=== PATIENT | female | born 2000 | race Caucasian/White ===

== ENCOUNTER 2020-10-09 05:53 | Inpatient (IN) | payer MEDICAID, OTHER ==
[2020-10-09] MEDS ORDERED: Sodium Chloride 0.9% 10 ML Syringe FLUSH PRN (07:07)
[2020-10-09] MEDS ORDERED: Nalbuphine 10 MG/1 ML Vial IVPUSH PRN (07:07)
[2020-10-09] MEDS ORDERED: Misoprostol 25 MCG (1/4 of 100 MCG) Tab VAG PRN (07:07)
[2020-10-09] MEDS ORDERED: Ondansetron 4 MG/2 ML SDV IVPUSH PRN (07:07)
--- NOTE | 2020-10-09 07:13 | PCM.LDHP ---
L&D History of Present Illness - General Date of Service: 10/09/20 Admit Problem/Dx: Patient Status Order with Admit Dx/Problem 10/09/20 07:08 Patient Status [ADT] Routine Admission Diagnosis/Problem Admission Diagnosis/Problem Normal Source of Information: Patient History Limitations: Reports: No Limitations - History of Present Illness Introduction:: Patient is a 20 y/o at 39 6/7 wks who presents for elective IOL. Doing well today. 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 : 2 Para: 0 LMP (Approximate): Psychiatric History: Reports: Anxiety, Depression - Past Surgical History HEENT Surgical History: Reports: Eye Surgery Female Surgical History: Reports: D&C Social & Family History - Tobacco Use Tobacco Use Status *Q: Never Tobacco User - Alcohol Use Alcohol Use History: No - Recreational Drug Use Recreational Drug Use: No H&P Review of Systems - Review of Systems: Review Of Systems: See Below General: Reports: No Symptoms Pulmonary: Reports: No Symptoms Cardiovascular: Reports: No Symptoms Gastrointestinal: Reports: No Symptoms Genitourinary: Reports: No Symptoms Musculoskeletal: Reports: No Symptoms Psychiatric: Reports: No Symptoms Neurological: Reports: No Symptoms L&D Exam - Exam Exam: See Below - OB Specific Contraction Intensity: Irritability Movement: Active Heart Tones: Present Heart Tones per Min: 145 Heart Rate (FHR) Variability: Moderate (6-25 bmp) Presentation: Vertex - Wade Score Wade Score Cervix Position: Midposition Wade Score Consistency: Soft Wade Score Effacement: 51-70% Wade Score Dilation: 1-2 cm Wade Score Infant's Station: -2 Wade Score Total: 7 - Exam General: Alert, Oriented, Cooperative Lungs: Clear to Auscultation, Normal Respiratory Effort Cardiovascular: Regular Rate, Regular Rhythm GI/Abdominal Exam: Soft, Non-Tender Genitourinary: Normal external exam Extremities: Normal Inspection Skin: Warm, Dry, Intact - Patient Data Result Diagrams: 12/10/20 07:25 10/09/20 07:25 - Problem List (1) 39 weeks gestation of SNOMED Code(s): 59378905 ICD Code: Z3A.39 - 39 WEEKS GESTATION OF Status: Acute Current Visit: Yes Problem List Initiated/Reviewed/Updated: Yes Orders Last 24hrs: Active Orders 24 hr Category Date Time Status Patient Status [ADT] Routine ADT 10/09/20 07:08 Ordered Communication Order [RC] ASDIRECTED Care 10/09/20 07:08 Ordered Communication Order [RC] ASDIRECTED Care 10/09/20 07:08 Ordered Communication Order [RC] ASDIRECTED Care 10/09/20 07:08 Ordered Monitoring [RC] INTERMITTENT Care 10/09/20 07:08 Ordered Non Stress Test [RC] PER UNIT ROUTINE Care 10/09/20 07:08 Ordered Notify Provider [RC] ASDIRECTED Care 10/09/20 07:08 Ordered Notify Provider [RC] PRN Care 10/09/20 07:08 Ordered Peripheral IV Care [RC] . DIRECTED Care 10/09/20 07:08 Ordered Vaginal Exam [RC] ASDIRECTED Care 10/09/20 07:08 Ordered Vital Signs [RC] ASDIRECTED Care 10/09/20 07:08 Ordered Regular Diet [DIET] Diet 10/09/20 Breakfast Ordered CBC W/O DIFF,HEMOGRAM [HEME] Routine Lab 10/09/20 07:07 Ordered RAPID PLASMA REAGIN,RPR [CHEM] Routine Lab 10/09/20 07:08 Ordered TYPE AND SCREEN [BBK] Routine Lab 10/09/20 07:07 Ordered Lactated Ringers [Ringers, Lactated] 1,000 ml Med 10/09/20 07:15 Ordered IV ASDIRECTED Nalbuphine [Nubain] Med 10/09/20 07:07 Ordered 10 mg IVPUSH Q2H PRN Ondansetron [Zofran] Med 10/09/20 07:07 Ordered 4 mg IVPUSH Q4H PRN Oxytocin/Lactated Ringers [Pitocin in LR 10 Units/1,000 Med 10/09/20 07:15 Ordered ML] 10 unit in 1,000 ml IV .CONTINUOUS Oxytocin/Lactated Ringers [Pitocin in LR 10 Units/1,000 Med 10/09/20 07:15 Ordered ML] 10 unit in 1,000 ml IV TITRATE Sodium Chloride 0.9% [Saline Flush] Med 10/09/20 07:07 Ordered 10 ml FLUSH ASDIRECTED PRN miSOPROStoL [Cytotec] Med 10/09/20 07:07 Ordered 25 mcg VAG Q4H PRN Electronic Heart Tones Internal [WOMSER] Per Unit Oth 10/09/20 07:08 Ordered Routine Medication Administration Instruction [OM.PC] Ot 10/09/20 07:15 Ordered ASDIRECTED Peripheral IV Insertion Adult [OM.PC] Routine Oth 10/09/20 07:08 Ordered Resuscitation Status Routine Resus Stat 10/09/20 07:07 Ordered Assessment/Plan Comment:: Patient admitted for IOL * Labs to be done * GBS negative * Pitocin and then AROM for IOL * Pain management per patient preference * Anticipate Patient with some upper limit of normal BP's on admission. Labs added on and normal. Continue plan as above
[2020-10-09] MEDS ORDERED: Oxytocin/Lactated Ringers 10 UNIT/1,000 ML BAG IV SCH (07:15)
[2020-10-09] MEDS: Lactated Ringers 1,000 ML IV SCH ×5 (08:12→21:48)
[2020-10-09] MEDS: Oxytocin/Lactated Ringers 10 UNIT/1,000 ML BAG IV SCH (08:12)
[2020-10-09] MEDS ORDERED: diphenhydrAMINE 50 MG/ML SDV IVPUSH PRN (14:47)
[2020-10-09] MEDS ORDERED: ePHEDrine 50 MG/ML SDV IVPUSH PRN (14:47)
[2020-10-09] MEDS: Bupivacaine/fentaNYL/NS 100 ML Bag EPIDUR PRN (14:55)
[2020-10-09] MEDS: fentaNYL 100 MCG/2 ML SDV EPIDUR PRN ×2 (14:55→16:08)
--- NOTE | 2020-10-09 15:56 | PCM.PREANE ---
Preanesthetic Assessment - Procedure Proposed Procedure: Labor Epidural - Anesthesia/Transfusion/Family Hx Anesthesia History: Prior Anesthesia Without Reaction Family History of Anesthesia Reaction: No Transfusion History: No Prior Transfusion(s) - Review of Systems General: No Symptoms Pulmonary: No Symptoms Cardiovascular: No Symptoms Gastrointestinal: Abdominal Pain (Uterine) Neurological: No Symptoms Other: Reports: None (Obesity BMI 42.9), Depression, Anxiety - Physical Assessment Vital Signs: Last Vital Signs Temp 36.6 C 10/09/20 07:28 Pulse 101 H 10/09/20 07:28 Resp 14 10/09/20 07:28 BP 134/88 10/09/20 07:28 Pulse Ox 98 10/09/20 07:28 Height: 1.65 m Weight: 117.027 kg ASA Class: 3 Mental Status: Alert & Oriented x3 Airway Class: Mallampati = 2 Dentition: Reports: Normal Dentition Thyro-Mental Finger Breadths: 3 Mouth Opening Finger Breadths: 3 ROM/Head Extension: Full Lungs: Clear to Auscultation, Normal Respiratory Effort Cardiovascular: Regular Rate, Regular Rhythm - Lab Values: Laboratory Last Values WBC 12.27 K/mm3 (3.98-10.04) H 10/09/20 07:25 RBC 4.21 M/mm3 (3.98-5.22) 10/09/20 07:25 Hgb 11.6 gm/dl (11.2-15.7) 10/09/20 07:25 Hct 35.3 % (34.1-44.9) 10/09/20 07:25 MCV 83.8 fl (79.4-94.8) 10/09/20 07:25 MCH 27.6 pg (25.6-32.2) 10/09/20 07:25 MCHC 32.9 g/dl (32.2-35.5) 10/09/20 07:25 RDW Std Deviation 42.9 fL (36.4-46.3) 10/09/20 07:25 Plt Count 444 K/mm3 (182-369) H 10/09/20 07:25 MPV 9.8 fl (9.4-12.3) 10/09/20 07:25 Creatinine 0.7 mg/dL (0.55-1.02) 10/09/20 07:25 Est Cr Clr Drug Dosing 114.40 mL/min 10/09/20 07:25 Estimated GFR (MDRD) > 60 mL/min (>60) 10/09/20 07:25 AST 14 U/L (15-37) L 10/09/20 07:25 ALT 20 U/L (14-59) 10/09/20 07:25 Ur Random Creatinine 105.1 mg/dL (30.0-125.0) 10/09/20 08:45 U Random Total Protein 25.0 mg/dL (0.0-11.8) H 10/09/20 08:45 Protein/Creatinin Ratio 237.9 mg/g (0-149) H 10/09/20 08:45 Blood Type A POSITIVE 10/09/20 07:25 Gel Antibody Screen Negative 10/09/20 07:25 - Allergies Allergies/Adverse Reactions: Allergies Allergy/AdvReac Type Severity Reaction Status Date / Time esomeprazole [From Nexium] Allergy Bleeding Verified 10/09/20 08:40 - Acknowledgements Anesthesia Type Planned: Epidural Pt an Appropriate Candidate for the Planned Anesthesia: Yes Alternatives and Risks of Anesthesia Discussed w Pt/Guardian: Yes Pt/Guardian Understands and Agrees with Anesthesia Plan: Yes PreAnesthesia Questionnaire HEENT History: Reports: 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: , 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 Psychiatric History: Reports: Anxiety, Depression - Past Surgical History HEENT Surgical History: Reports: Eye Surgery Female Surgical History: Reports: D&C - SUBSTANCE USE Tobacco Use Status *Q: Never Tobacco User Second Hand Smoke Exposure: No Recreational Drug Use History: No - HOME MEDS Home Medications: Home Meds Vits #93/Iron Fum/FA [ Formula Tablet] 1 each PO DAILY 10/09/20 [History] - CURRENT (IN HOUSE) MEDS Current Meds: Current Medications Diphenhydramine HCl (Benadryl) 25 mg IVPUSH Q6H PRN PRN Reason: pruritis Ephedrine Sulfate (Ephedrine Sulfate) 5 mg IVPUSH ASDIRECTED PRN PRN Reason: Hypotension Fentanyl (Sublimaze) 100 mcg EPIDUR Q3H PRN PRN Reason: Pain Last Admin: 10/09/20 14:55 Dose: 100 mcg Documented by: Fentanyl/Bupivacaine HCl (Fentanyl/Bupivacaine/Ns 2 Mcg-0.125% 100 Ml) 100 ml EPIDUR ASDIRECTED PRN PRN Reason: Pain Last Admin: 10/09/20 14:55 Dose: 100 ml Documented by: Oxytocin/Lactated Ringer's (Pitocin In Lr 10 Units/1,000 Ml) 10 unit in 1,000 mls @ 12 mls/hr IV TITRATE STEPHANIE; Protocol Last Titration: 10/09/20 14:49 Dose: 5 munits/min, 30 mls/hr Documented by: Oxytocin/Lactated Ringer's (Pitocin In Lr 10 Units/1,000 Ml) 10 unit in 1,000 mls @ 500 mls/hr IV .CONTINUOUS STEPHANIE Lactated Ringer's (Ringers, Lactated) 1,000 mls @ 40 mls/hr IV ASDIRECTED STEPHANIE Last Admin: 10/09/20 14:54 Dose: 40 mls/hr Documented by: Misoprostol (Cytotec) 25 mcg VAG Q4H PRN PRN Reason: cervical ripening Nalbuphine HCl (Nubain) 10 mg IVPUSH Q2H PRN PRN Reason: Pain Ondansetron HCl (Zofran) 4 mg IVPUSH Q4H PRN PRN Reason: Nausea/Vomiting Sodium Chloride (Saline Flush) 10 ml FLUSH ASDIRECTED PRN PRN Reason: Keep Vein Open
[2020-10-10] MEDS ORDERED: Bupivacaine 0.25% 10 ML SDV ONE ×2
[2020-10-10] MEDS: Bupivacaine/fentaNYL/NS 100 ML Bag EPIDUR PRN (00:21)
[2020-10-10] MEDS: Oxytocin/Lactated Ringers 10 UNIT/1,000 ML BAG IV SCH (02:29)
[2020-10-10] MEDS: Lactated Ringers 1,000 ML IV SCH (02:57)
[2020-10-10] MEDS ORDERED: Acetaminophen 325 MG Tab PO ONE (04:48)
[2020-10-10] MEDS ORDERED: GENTAMICIN IV ONE (04:52)
[2020-10-10] MEDS ORDERED: SODIUM CHLORIDE 0.9% IV ONE (04:52)
[2020-10-10] MEDS ORDERED: Ampicillin 2 GM AdvVial IV ONE (04:52)
[2020-10-10] MEDS ORDERED: Sodium Chloride 0.9% 100 ML ONE (04:53)
--- NOTE | 2020-10-10 04:54 | PCM.SN.2 ---
- Free Text/Narrative Note: [id number] Patient with some intermittent tachycardia. Maternal temperature just 100.1. Will give 975 mg of Tylenol and start Amp and Gent for presumed chorioamnionitis. Samantha Fan MD
[2020-10-10] MEDS ORDERED: Ampicillin 2 GM in Sodium Chloride 0.9% 100 ML IV SCH (05:00)
--- NOTE | 2020-10-10 06:05 | PCM.DEL ---
L & D Note - General Info Date of Service: 10/10/20 - Delivery Note Labor: Induced by ARM, Induced by Oxytocin Delivery Outcome: Livebirth Infant Delivery Method: Spontaneous Vaginal Delivery-Single Infant Delivery Mode: Spontaneous Presentation: Right Occiput Anterior (HUI) Nuchal Cord: Present, Reduced Anesthesia Type: Epidural Amniotic Fluid Description: Clear Episiotomy Type: None Laceration: None Placenta: Intact, Spontaneous Cord: 3 Vessels Estimated Blood Loss: 100 Resuscitation Needed: Yes : Bulb Syringe, Stimulated, Warmed, [place] Used, Warmer Used Score 1 min: 4 Score 5 min: 8 Delivery Comments (Free Text/Narrative):: Patient found to be complete and began pushing. With maternal pushing effort head delivered from an HUI presentation. Nuchal cord present and reduced. With gentle downward traction the shoulders and body delivered. placed on maternal abdomen. Cord clamped and cut. Baby then taken to warmer. Cord gas segment obtained. Cord blood obtained. Placenta allowed time to separate and expelled intact. Inspection of perineum showed no lacerations - General Info Date of Service: 10/10/20 - Patient Data Vitals - Most Recent: Last Vital Signs Temp 37.8 C 10/10/20 04:47 Pulse 101 H 10/09/20 07:28 Resp 14 10/09/20 07:28 BP 134/88 10/09/20 07:28 Pulse Ox 98 10/09/20 07:28 Weight - Most Recent: 117.027 kg I&O - Last 24 Hours: Intake & Output 10/09/20 10/09/20 10/10/20 14:59 22:59 06:59 Intake Total 4000 2000 Output Total 1875 Balance 4000 125 - Problem List & Annotations (1) 39 weeks gestation of SNOMED Code(s): 03950876 Code(s): Z3A.39 - 39 WEEKS GESTATION OF Status: Acute Current Visit: Yes (2) Chorioamnionitis SNOMED Code(s): 00783436 Code(s): O41.1290 - CHORIOAMNIONITIS, UNSP TRIMESTER, NOT APPLICABLE OR UNSP Status: Acute Current Visit: Yes Qualifiers: Fetus number: single or unspecified fetus Trimester: third trimester Qualified Code(s): O41.1230 - Chorioamnionitis, third trimester, not applicable or unspecified (3) Vaginal delivery SNOMED Code(s): 780545532 Code(s): O80 - ENCOUNTER FOR FULL-TERM UNCOMPLICATED DELIVERY Status: Acute Current Visit: Yes - Problem List Review Problem List Initiated/Reviewed/Updated: Yes - My Orders Last 24 Hours: My Active Orders 10/09/20 Breakfast Regular Diet [DIET] 10/09/20 07:07 Nalbuphine [Nubain] 10 mg IVPUSH Q2H PRN Ondansetron [Zofran] 4 mg IVPUSH Q4H PRN Sodium Chloride 0.9% [Saline Flush] 10 ml FLUSH ASDIRECTED PRN miSOPROStoL [Cytotec] 25 mcg VAG Q4H PRN Resuscitation Status Routine 10/09/20 07:08 Patient Status [ADT] Routine Communication Order [RC] ASDIRECTED Communication Order [RC] ASDIRECTED Communication Order [RC] ASDIRECTED Notify Provider [RC] ASDIRECTED Notify Provider [RC] PRN Peripheral IV Care [RC] Q2HR Electronic Heart Tones Internal [WOMSER] Per Unit Routine Peripheral IV Insertion Adult [OM.PC] Routine 10/09/20 07:15 Lactated Ringers [Ringers, Lactated] 1,000 ml IV ASDIRECTED Oxytocin/Lactated Ringers [Pitocin in LR 10 Units/1,000 ML] 10 unit in 1,000 ml IV .CONTINUOUS Oxytocin/Lactated Ringers [Pitocin in LR 10 Units/1,000 ML] 10 unit in 1,000 ml IV TITRATE Medication Administration Instruction [OM.PC] ASDIRECTED 10/10/20 05:00 Ampicillin 2 gm Sodium Chloride 0.9% [Normal Saline] 100 ml IV Q6H - Assessment Assessment:: PPD#0 - Plan Plan:: * Routine cares * Breast feeding * No need for further antibiotics * Discharge home in 1-2 days
[2020-10-10] MEDS ORDERED: Witch Hazel Medicated Pads 40/Jar TOP PRN (07:55)
[2020-10-10] MEDS ORDERED: Docusate Sodium 100 MG Cap PO PRN (07:55)
[2020-10-10] MEDS ORDERED: Acetaminophen 325 MG Tab PO PRN (07:55)
[2020-10-10] MEDS ORDERED: Benzocaine/Menthol 20%-0.5% Spray 56 GM Canister TOP PRN (07:55)
--- NOTE | 2020-10-10 08:04 | PCM48HPAN ---
Post Anesthesia Note - EVALUATION WITHIN 48HRS OF ANESTHETIC Vital Signs in Normal Range: Yes Patient Participated in Evaluation: Yes Respiratory Function Stable: Yes Airway Patent: Yes Cardiovascular Function Stable: Yes Hydration Status Stable: Yes Pain Control Satisfactory: Yes Nausea and Vomiting Control Satisfactory: Yes Mental Status Recovered: Yes Vital Signs: Last Vital Signs Temp 37.8 C 10/10/20 04:47 Pulse 101 H 10/09/20 07:28 Resp 14 10/09/20 07:28 BP 134/88 10/09/20 07:28 Pulse Ox 98 10/09/20 07:28
[2020-10-10] MEDS: Ibuprofen 600 MG Tab PO PRN ×2 (11:20→18:12)
[2020-10-11] MEDS: Ibuprofen 600 MG Tab PO PRN ×2 (02:37→08:43)
--- NOTE | 2020-10-11 11:06 | PCM.SN.2 ---
- Free Text/Narrative Note: Post Progress Note PPD #1 Subjective: Doing well overall. Ambulating without difficulty. Lochia minimal. Voiding without difficulty. Tolerating regular diet without nausea or vomiting. Pain controlled with oral medications. Breast-feeding with minimal difficulty. Denies any fevers or chills. Denies any headaches, vision changes or epigastric pain. Objective: Vitals: Vital Signs - 24 hr 10/10/20 10/10/20 10/11/20 15:34 21:10 03:14 Temperature 36.4 C 36.9 C 36.6 C Pulse, 91 91 98 Peripheral Respiratory 17 14 16 Rate Blood Pressure 124/74 139/79 126/70 O2 Sat by Pulse 95 96 97 Oximetry Physical Exam General: Alert and oriented, no acute distress Lungs: Clear to auscultation bilaterally Heart: Regular rate and rhythm Abdomen: Soft, minimal appropriate tenderness, non-distended, fundus midline, nontender, and at the umbilicus Extremities: 1+ edema in bilateral lower extremities to mid shins Laboratory Tests 10/09/20 10/09/20 10/09/20 Range/Units 07:25 07:25 07:25 WBC 12.27 H (3.98-10.04) K/mm3 RBC 4.21 (3.98-5.22) M/mm3 Hgb 11.6 (11.2-15.7) gm/dl Hct 35.3 (34.1-44.9) % MCV 83.8 (79.4-94.8) fl MCH 27.6 (25.6-32.2) pg MCHC 32.9 (32.2-35.5) g/dl RDW Std Deviation 42.9 (36.4-46.3) fL Plt Count 444 H (182-369) K/mm3 MPV 9.8 (9.4-12.3) fl Creatinine (0.55-1.02) mg/dL Est Cr Clr Drug Dosing mL/min Estimated GFR (MDRD) (>60) mL/min AST (15-37) U/L ALT (14-59) U/L Ur Random Creatinine (30.0-125.0) mg/dL U Random Total Protein (0.0-11.8) mg/dL Protein/Creatinin Ratio (0-149) mg/g RPR Non-reactive (NONREACTIVE) Blood Type A POSITIVE Gel Antibody Screen Negative 10/09/20 10/09/20 Range/Units 07:25 08:45 WBC (3.98-10.04) K/mm3 RBC (3.98-5.22) M/mm3 Hgb (11.2-15.7) gm/dl Hct (34.1-44.9) % MCV (79.4-94.8) fl MCH (25.6-32.2) pg MCHC (32.2-35.5) g/dl RDW Std Deviation (36.4-46.3) fL Plt Count (182-369) K/mm3 MPV (9.4-12.3) fl Creatinine 0.7 (0.55-1.02) mg/dL Est Cr Clr Drug Dosing 114.40 mL/min Estimated GFR (MDRD) > 60 (>60) mL/min AST 14 L (15-37) U/L ALT 20 (14-59) U/L Ur Random Creatinine 105.1 (30.0-125.0) mg/dL U Random Total Protein 25.0 H (0.0-11.8) mg/dL Protein/Creatinin Ratio 237.9 H (0-149) mg/g RPR (NONREACTIVE) Blood Type Gel Antibody Screen ASSESSMENT: 20-year-old female -0-1-1 s/p normal vaginal delivery PPD #1, complicated by chorioamnionitis around time of delivery PLAN: Doing well Breast-feeding with minimal difficulty. Assist as needed Lochia minimal. Continue to monitor for appropriate lochia. Continue routine care Normal blood pressures overnight without any elevations. No symptoms consistent with severe features of preeclampsia. No fevers overnight Anticipate discharge home today Lan Chance MD 11:05 AM 10/11/2020
--- NOTE | 2020-10-11 11:14 | PCM.DCSUM1 ---
Discharge Summary - Hospital Course Free Text/Narrative:: - General Info Date of Service: 10/10/20 - Delivery Note Labor: Induced by ARM, Induced by Oxytocin Delivery Outcome: Livebirth Delivery Method: Spontaneous Vaginal Delivery-Single Infant Delivery Mode: Spontaneous Presentation: Right Occiput Anterior (HUI) Nuchal Cord: Present, Reduced Anesthesia Type: Epidural Amniotic Fluid Description: Clear Episiotomy Type: None Laceration: None Placenta: Intact, Spontaneous Cord: 3 Vessels Estimated Blood Loss: 100 Resuscitation Needed: Yes : Bulb Syringe, Stimulated, Warmed, [place] Used, Warmer Used Score 1 min: 4 Score 5 min: 8 Delivery Comments (Free Text/Narrative):: Patient found to be complete and began pushing. With maternal pushing effort head delivered from an HUI presentation. Nuchal cord present and reduced. With gentle downward traction the shoulders and body delivered. Infant placed on maternal abdomen. Cord clamped and cut. Baby then taken to warmer. Cord gas segment obtained. Cord blood obtained. Placenta allowed time to separate and expelled intact. Inspection of perineum showed no lacerations Diagnosis: Stroke: No - Discharge Data Discharge Date: 10/11/20 Discharge Disposition: Home, Self-Care 01 Condition: Good - Referral to Home Health Primary Care Physician: Samantha Fan MD - Discharge Diagnosis/Problem(s) (1) 39 weeks gestation of SNOMED Code(s): 19423497 ICD Code: Z3A.39 - 39 WEEKS GESTATION OF Status: Acute Current Visit: Yes (2) Chorioamnionitis SNOMED Code(s): 85099734 ICD Code: O41.1290 - CHORIOAMNIONITIS, UNSP TRIMESTER, NOT APPLICABLE OR UNSP Status: Acute Current Visit: Yes Qualifiers: Fetus number: single or unspecified fetus Trimester: third trimester Qualified Code(s): O41.1230 - Chorioamnionitis, third trimester, not applicable or unspecified (3) Vaginal delivery SNOMED Code(s): 888990840 ICD Code: O80 - ENCOUNTER FOR FULL-TERM UNCOMPLICATED DELIVERY Status: Acute Current Visit: Yes - Patient Summary/Data Complications: None Consults: None Hospital Course: Venecia Guidry was admitted for elective induction of labor. On admission her cervix was dilated to 1-2 cm. She was GBS negative. She was given pitocin for augmentation. She was given an epidural for anesthesia. She had artificial rupture of membranes with clear fluid. She developed a fever prior to getting to complete and was having tachycardia. She was treated for chorioamnion itis with ampicillin 2 g IV and gentamicin 5 mg/kg IV. She progressed to complete and began pushing. On 10/10/2020 she had a normal vaginal delivery of a live male at 05:53. Apgars of 4 and 8. Weight of 3730 g (8 pounds 3.6 ounces). Her course was uneventful. Her pain was well controlled and she had minimal lochia. She was ambulating, tolerating a regular diet and voiding normally. She was breast-feeding with minimal difficulty. She was afebrile and her hematocrit was 35.3 on admission. She desired to be discharged home on the morning of PPD #1. Her blood type is A+. - Patient Instructions Diet: Regular Diet as Tolerated Activity: Apply Ice, As Tolerated Activity, Other: Nothing in the vagina for 6 weeks Driving: May Drive Today Showering/Bathing: May Shower Notify Provider of: Fever, Increased Pain, Swelling and Redness, Drainage, Nausea and/or Vomiting Other/Special Instructions: Please contact your physician's office if you have heavy vaginal bleeding enough to soak a pad in less than an hour for several hours. Monitor for any signs of an infection in the breasts with severe pain or redness of the breast. - Discharge Plan *PRESCRIPTION DRUG MONITORING PROGRAM REVIEWED*: Not Applicable *COPY OF PRESCRIPTION DRUG MONITORING REPORT IN PATIENT EMETERIO: Not Applicable Home Medications: Home Meds Vits #93/Iron Fum/FA [ Formula Tablet] 1 each PO DAILY 10/09/20 [History] Acetaminophen [Tylenol] 650 mg PO Q6H PRN tablet 10/11/20 [Rx] Benzocaine/Menthol [Dermoplast Pain Relief [place]] 1 spray TOP ASDIRECTED PRN canister 10/11/20 [Rx] Docusate Sodium [Colace] 100 mg PO BID PRN cap 10/11/20 [Rx] Ibuprofen [Motrin] 600 mg PO Q6H PRN tablet 10/11/20 [Rx] witch Margarito [Tucks] 1 pad TOP ASDIRECTED PRN pad 12/12/20 [Rx] Patient Handouts: Care After Vaginal Delivery Referrals: Samantha Fan MD [Primary Care Provider] - (Follow-up in 3 to 6 weeks for routine visit or earlier as needed.) - Discharge Summary/Plan Comment DC Time >30 min.: No - Patient Data Vitals - Most Recent: Last Vital Signs Temp 36.6 C 10/11/20 03:14 Pulse 98 10/11/20 03:14 Resp 16 10/11/20 03:14 BP 126/70 10/11/20 03:14 Pulse Ox 97 10/11/20 03:14 Weight - Most Recent: 117.027 kg Med Orders - Current: Current Medications Acetaminophen (Tylenol) 650 mg PO Q4H PRN PRN Reason: mild pain or fever Benzocaine/Menthol (Dermoplast Pain Relief [place]) 0 gm TOP ASDIRECTED PRN PRN Reason: Perineal Comfort Measure Last Admin: 10/10/20 11:20 Dose: 1 can Documented by: Docusate Sodium (Colace) 100 mg PO BID PRN PRN Reason: Constipation Ibuprofen (Motrin) 600 mg PO Q6H PRN PRN Reason: Mild pain or fever Last Admin: 10/11/20 08:43 Dose: 600 mg Documented by: Brayan Morris (Sophy) 1 pad TOP ASDIRECTED PRN PRN Reason: Perineal Comfort Measure Last Admin: 10/10/20 11:20 Dose: 1 box Documented by: Discontinued Medications Acetaminophen (Tylenol) 975 mg PO NOW ONE Stop: 10/10/20 04:49 Last Admin: 10/10/20 04:47 Dose: 975 mg Documented by: Ampicillin Sodium (Ampicillin) Confirm Administered Dose 2 gm IV .STK-MED ONE Stop: 10/10/20 04:53 Last Admin: 10/10/20 07:51 Dose: Not Given Documented by: Bupivacaine HCl (Sensorcaine-Mpf 0.25%) 10 ml .ROUTE .STK-MED ONE Stop: 10/10/20 00:01 Bupivacaine HCl (Sensorcaine-Mpf 0.25%) 10 ml .ROUTE .STK-MED ONE Stop: 10/10/20 00:01 Diphenhydramine HCl (Benadryl) 25 mg IVPUSH Q6H PRN PRN Reason: pruritis Ephedrine Sulfate (Ephedrine Sulfate) 5 mg IVPUSH ASDIRECTED PRN PRN Reason: Hypotension Fentanyl (Sublimaze) 100 mcg EPIDUR Q3H PRN PRN Reason: Pain Last Admin: 10/09/20 16:08 Dose: 100 mcg Documented by: Fentanyl/Bupivacaine HCl (Fentanyl/Bupivacaine/Ns 2 Mcg-0.125% 100 Ml) 100 ml EPIDUR ASDIRECTED PRN PRN Reason: Pain Last Admin: 10/10/20 00:21 Dose: 100 ml Documented by: Oxytocin/Lactated Ringer's (Pitocin In Lr 10 Units/1,000 Ml) 10 unit in 1,000 mls @ 12 mls/hr IV TITRATE STEPHANIE; Protocol Last Titration: 10/10/20 05:54 Dose: 166.5 munits/min, 999 mls/hr Documented by: Oxytocin/Lactated Ringer's (Pitocin In Lr 10 Units/1,000 Ml) 10 unit in 1,000 mls @ 500 mls/hr IV .CONTINUOUS STEPHANIE Lactated Ringer's (Ringers, Lactated) 1,000 mls @ 40 mls/hr IV ASDIRECTED STEPHANIE Last Admin: 10/10/20 02:57 Dose: 40 mls/hr Documented by: Ampicillin Sodium 2 gm/ Sodium (Chloride) 100 mls @ 200 mls/hr IV Q6H STEPHANIE Last Admin: 10/10/20 04:58 Dose: 200 mls/hr Documented by: Gentamicin Sulfate 585 mg/ (Sodium Chloride) 114.625 mls @ 114.625 mls/hr IV ONETIME ONE Stop: 10/10/20 04:53 Last Admin: 10/10/20 05:33 Dose: 114.625 mls/hr Documented by: Sodium Chloride (Normal Saline) Confirm Administered Dose 100 mls @ as directed .ROUTE .STK-MED ONE Stop: 10/10/20 04:54 Last Admin: 10/10/20 07:51 Dose: Not Given Documented by: Misoprostol (Cytotec) 25 mcg VAG Q4H PRN PRN Reason: cervical ripening Nalbuphine HCl (Nubain) 10 mg IVPUSH Q2H PRN PRN Reason: Pain Ondansetron HCl (Zofran) 4 mg IVPUSH Q4H PRN PRN Reason: Nausea/Vomiting Last Admin: 10/10/20 02:27 Dose: 4 mg Documented by: Sodium Chloride (Saline Flush) 10 ml FLUSH ASDIRECTED PRN PRN Reason: Keep Vein Open
== END 2020-10-11 15:15 | disposition home or self-care (01) | DRG 805 ==
LOC: JD.OB 05:53 → OBSVTOIN 17:27 → INTOOBSV 17:27 → JD.OB 17:28 → OBSVTOIN 10-10 05:53 → JD.OB 10-10 05:54
PROVIDERS: ADMIT Obstetrics & Gynecology; ATTEND Obstetrics & Gynecology
PROC: 10E0XZZ Delivery of Products of Conception, External Approach (ICD-10-PCS; principal; 2020-10-10)
PROC: 10907ZC Drainage of Amniotic Fluid, Therapeutic from Products of Conception, Via Natural or Artificial Opening (ICD-10-PCS; 2020-10-10)
PROC: 3E033VJ Introduction of Other Hormone into Peripheral Vein, Percutaneous Approach (ICD-10-PCS; 2020-10-10)
PROC: 3E0R3BZ Introduction of Anesthetic Agent into Spinal Canal, Percutaneous Approach (ICD-10-PCS; 2020-10-10)
PROC: 00HU33Z Insertion of Infusion Device into Spinal Canal, Percutaneous Approach (ICD-10-PCS; 2020-10-10)
DX: O69.81X0 Labor and delivery complicated by cord around neck, without compression, not applicable or unspecified (principal); O41.1230 Chorioamnionitis, third trimester, not applicable or unspecified; Z37.0 Single live birth; Z3A.39 39 weeks gestation of pregnancy; Z88.8 Allergy status to other drugs, medicaments and biological substances
CPT/HCPCS: 01967; 36415; 51702; 59025; 59409; 82565; 82570; 84156; 84450; 84460; 85027; 86592; 86850; 86900; 86901; A9270-GY; J0290; J1580; J2405; J2590; J3010; J3490; J7050; J7120

== ENCOUNTER 2023-05-02 03:56 | Inpatient (IN) | payer MEDICAID ==
[2023-05-02] MEDS ORDERED: Nalbuphine 10 MG/0.5 ML Syringe IVPUSH PRN (04:15)
[2023-05-02] MEDS ORDERED: Lactated Ringers 1,000 ML IV SCH (04:15)
[2023-05-02] MEDS ORDERED: Sodium Chloride 0.9% 10 ML Syringe FLUSH PRN (04:15)
[2023-05-02] MEDS ORDERED: Oxytocin/Lactated Ringers 10 UNIT/1,000 ML BAG IV SCH (04:15)
[2023-05-02 04:43] LABS: BASOPHILS ABSOLUTE AUTO 0.03 K/mm3 (0.01-0.08); BASOPHILS PERCENT AUTO 0.2 % (0.1-1.2); EOSINOPHILS PERCENT AUTO 0.5 (0.7-5.8); HEMATOCRIT 38.2 % (34.1-44.9); HEMOGLOBIN 12.4 gm/dl (11.2-15.7); IMMATURE GRAN ABSOLUTE AUTO 0.08 K/mm3 (0.00-0.10); IMMATURE GRAN PERCENT AUTO 0.4 % (<=1.0); LYMPHOCYTES ABSOLUTE AUTO 2.59 K/mm3 (1.18-3.74); LYMPHOCYTES PERCENT AUTO 13.6 % (19.3-51.7); MEAN CORPUSCULAR HEMOGLOBIN 25.8 pg (25.6-32.2); MEAN CORPUSCULAR HGB CONC 32.5 g/dl (32.2-35.5); MEAN CORPUSCULAR VOLUME 79.4 fl (79.4-94.8); MEAN PLATELET VOLUME 9.7 fl (9.4-12.3); MONOCYTES ABSOLUTE AUTO 1.15 K/mm3 (0.24-0.36); MONOCYTES PERCENT AUTO 6.1 % (4.7-12.5); NEUTROPHILS ABSOLUTE AUTO 15.04 K/mm3 (1.56-6.13); NEUTROPHILS PERCENT AUTO 79.2 % (34.0-71.1); PLATELET COUNT,PLT 562 K/mm3 (182-369); RED BLOOD CELL COUNT 4.81 M/mm3 (3.98-5.22); WHITE BLOOD CELL COUNT,WBC 18.99 K/mm3 (3.98-10.04)
[2023-05-02] MEDS ORDERED: Bupivacaine/fentaNYL/NS 100 ML Bag EPIDUR PRN (04:53)
[2023-05-02] MEDS ORDERED: diphenhydrAMINE 50 MG/ML SDV IVPUSH PRN (04:53)
[2023-05-02] MEDS ORDERED: ePHEDrine 50 MG/ML SDV IVPUSH PRN (04:53)
[2023-05-02] MEDS ORDERED: fentaNYL 100 MCG/2 ML SDV EPIDUR PRN (04:53)
[2023-05-02] MEDS ORDERED: Witch Hazel Medicated Pads 40/Jar TOP PRN (08:11)
[2023-05-02] MEDS ORDERED: Benzocaine/Menthol 20%-0.5% Spray 78 GM Cannister TOP PRN (08:11)
[2023-05-02] MEDS: Ibuprofen 600 MG Tab PO PRN ×2 (08:28→20:02)
[2023-05-02] MEDS ORDERED: Sodium Chloride 0.9% 10 ML Syringe FLUSH SCH (09:00)
[2023-05-02] MEDS ORDERED: Docusate Sodium 100 MG Cap PO PRN (14:10)
[2023-05-02] MEDS: Acetaminophen 325 MG Tab PO PRN ×2 (14:17→20:02)
[2023-05-03] MEDS: Ibuprofen 600 MG Tab PO PRN (08:57)
== END 2023-05-03 12:30 | disposition home or self-care (01) | DRG 807 ==
LOC: JD.OBCHECK 03:56 → JD.OB 04:15 → OBSVTOIN 05:19 → JD.OB 05:19
PROVIDERS: ADMIT Obstetrics & Gynecology; ATTEND Obstetrics & Gynecology
PROC: 10E0XZZ Delivery of Products of Conception, External Approach (ICD-10-PCS; principal; 2023-05-02)
DX: O80 Encounter for full-term uncomplicated delivery (principal); Z37.0 Single live birth; Z3A.40 40 weeks gestation of pregnancy; Z88.8 Allergy status to other drugs, medicaments and biological substances; Z98.890 Other specified postprocedural states
CPT/HCPCS: 36415; 59025; 59409; 85025; 86592; A9270-GY; J2300; J2590; J7120